=== PATIENT | female | born 1950 | race Caucasian/White ===

== ENCOUNTER 2021-03-01 10:37 | Emergency (ER) | payer OTHER ==
--- NOTE | 2021-03-01 11:20 | RAD REPORT ---
EXAM DESCRIPTION: CT - Head Brain Wo Cont - 03/01/2021 11:11 am CLINICAL HISTORY: TRAUMA COMPARISON: No comparisons TECHNIQUE: All CT scans are performed using dose optimization technique as appropriate and may inclu de automated exposure control or mA/KV adjustment according to patient size. FINDINGS: No intracranial hemorrhage, hydrocephalus or extra-axial fluid collection.No areas of brai n edema or evidence of midline shift. Right forehead laceration. Mucous retention cyst in the right maxillary sinus. The calvarium is intact. IMPRESSION: No acute intracranial abnormality. No skull fracture.
[2021-03-01] MEDS ORDERED: LIDOCAINE 1% MPF 5 ML VIAL ONE (11:32)
[2021-03-01] MEDS ORDERED: TETANUS & DIPHTHERIA TOX,ADULT 0.5 ML VIAL ONE (11:33)
[2021-03-01] MEDS ORDERED: LIDOCAINE 1% W/EPI 1:100,000 MDV 20 ML VIAL ONE (11:33)
--- NOTE | 2021-03-01 13:39 | ER ---
Nurse's Notes [facility] Name: Dory Temple Age: 70 yrs Sex: Female : 1950 Arrival Date: 03/01/2021 Time: 10:38 Bed 13 Private MD: Diagnosis: Laceration without foreign body of scalp;Laceration without foreign body of left little finger without damage to nail Presentation: 03/01 10:39 Risk Assessment: Do you want to hurt yourself or someone else? Patient reports no sv desire to harm self or others. Onset of symptoms was March 01, 2021. 10:39 Method Of Arrival: Ambulatory sv 10:40 Chief complaint: Patient states: fell into the facing of a door at home after coming in sv from outside. Pt states she drags her feet and tripped into the door. Pt has a head laceration to the top of her head, bleeding controlled. Denies LOC and not on blood thinners. Coronavirus screen: Coronavirus screen: Vaccine status: Patient reports receiving the 2nd dose of the covid vaccine. Patient reports receiving the 1st dose of the Covid vaccine. Ebola Screen: No symptoms or risks identified at this time. Initial Sepsis Screen: Does the patient meet any 2 criteria? No. Patient's initial sepsis screen is negative. Does the patient have a suspected source of infection? No. Patient's initial sepsis screen is negative. 10:40 Acuity: HENRRY 3 sv Triage Assessment: 10:39 General: Appears in no apparent distress. Behavior is calm, cooperative, appropriate sv for age. Neuro: Level of Consciousness is awake, alert, obeys commands, Oriented to person, place, time, situation, Gait is steady. Respiratory: Respiratory effort is even, unlabored. Historical: - Allergies: 10:44 No Known Allergies; sv - PMHx: 10:44 HTN; Diabetes mellitus; High cholesterol; sv - PSHx: 10:44 Justin hip; top 5 vertebrae fused; section; sv - Immunization history:: Adult Immunizations up to date. - Social history:: Smoking status: Patient denies any tobacco usage or history of. Screenin:09 Abuse screen: Denies threats or abuse. Denies injuries from another. Nutritional tw5 screening: No deficits noted. Tuberculosis screening: No symptoms or risk factors identified. Fall Risk Fall in past 12 months (25 points). Assessment: 11:09 General: Appears in no apparent distress. comfortable, Behavior is calm, cooperative, tw5 appropriate for age, Reports "I feel back into my back door and my head hit the frame." is at the bedside with patient. Pain: Complains of pain in right frontal area Pain currently is 4 out of 10 on a pain scale. Neuro: Level of Consciousness is awake, alert, obeys commands, Oriented to person, place, time, situation. Derm: Wound noted right frontal area. Injury Description: Laceration sustained to right frontal area is contaminated, full thickness, 7.6 to 20 cm long, bleeding moderately, was sustained 30-60 minutes ago. moderate bleeding noted at this time. 11:22 Pain: Pain currently is 4 out of 10 on a pain scale. tw5 11:52 Reassessment: Patient appears in no apparent distress at this time. tw5 13:52 Reassessment: Patient states feeling better. Patient states symptoms have improved. tw5 Vital Signs: 10:40 BP 136 / 105; Pulse 80; Resp 16; Temp 97.5; Pulse Ox 100% ; Weight 90.72 kg; Height 5 sv ft. 6 in. (167.64 cm); Pain 5/10; 11:09 BP 130 / 69; Pulse 81; Resp 18; Pulse Ox 100% on R/A; tw5 11:22 BP 125 / 64; Pulse 85; Resp 14; Pulse Ox 99% on R/A; Pain 4/10; tw5 11:52 BP 137 / 68; Pulse 83; Resp 14; Pulse Ox 98% ; Pain 4/10; tw5 13:52 BP 120 / 83; Pulse 86; Resp 14; Temp 98.1; Pulse Ox 100% ; Pain 0/10; tw5 10:40 Body Mass Index 32.28 (90.72 kg, 167.64 cm) sv ED Course: 10:38 Patient arrived in ED. ds1 10:39 Arm band placed on. sv 10:44 Triage completed. sv 10:47 Tarah Guevara FNP-C is PHCP. kb 10:47 Robinson Johnson MD is Attending Physician. kb 10:57 Janice Almonte is Primary Nurse. tw5 11:[address] Scan. tw5 11:09 Patient has correct armband on for positive identification. Pulse ox on. NIBP on. Door tw5 closed. Noise minimized. Lights dimmed. Warm blanket given. 11:10 CT Head Brain wo Cont In Process Unspecified. EDMS 11:52 Bed in low position. Call light in reach. Side rails up X 1. tw5 11:52 Wound care: to laceration located on right frontal area was cleaned with irrigated with tw5 Patient tolerated well. 11:52 Assist provider with laceration repair on right frontal area that was between 7.6 to tw5 12.5 cm using sutures. Set up tray. Performed by Tarah ENRIQUEZ Dressed with Kerlix. 12:00 Assist provider with laceration repair using rayo. tw5 12:00 Patient did not have IV access during this emergency room visit. tw5 Administered Medications: 11:23 Drug: Tetanus-Diphtheria Toxoid Adult 0.5 ml {Dance Critic: [employer]. Exp: tw5 08/26/2022. Lot #: [id number]. } Route: IM; Site: left deltoid; 12:37 Follow up: Response: No adverse reaction tw5 12:00 Drug: Lidocaine (1 %) 1 vials {Note: Administered by CHENILLE MACHINE OPERATOR.} Volume: 5 ml; Route: tw5 Infiltration; 12:00 Drug: Lidocaine-Epinephrine -1%: (1:100,000) 1 vials {Note: Administered by CHENILLE MACHINE OPERATOR.} tw5 Volume: 20 ml; Route: Infiltration; Outcome: 13:38 Discharge ordered by MD. jensen 13:52 Discharged to home ambulatory, with family. tw5 13:52 Condition: stable 13:52 Discharge instructions given to patient, family, Instructed on discharge instructions, follow up and referral plans. medication usage, Demonstrated understanding of instructions, Prescriptions given X 1. 13:53 Patient left the ED. tw5 Signatures: Dispatcher [employer] EDIA Tarah Guevara FNP-C FNP-Donna La RN RN sv Sanford, Demi ds1 Jackson, Kandis kj1 Wood, Tiffany tw5 Corrections: (The following items were deleted from the chart) 10:45 10:40 Coronavirus screen: sv sv 10:47 10:40 Chief complaint: Patient states: fell into the facing of a door at home after sv coming in from outside. Pt states she drags her feet and tripped into the door. sv 10:48 10:40 Chief complaint: Patient states: fell into the facing of a door at home after sv coming in from outside. Pt states she drags her feet and tripped into the door. Denies LOC and not on blood thinners. sv 11:18 11:09 BP 130 / 69; Pulse 18bpm; Resp 81bpm; Pulse Ox 100% RA; tw5 tw5 11:40 11:15 Inserted saline lock: 20 gauge in left antecubital area, using aseptic technique. kj1 Blood collected. kj1 11:40 11:15 Initial lab(s) drawn, by ED staff, sent to lab. kj1 kj1
--- NOTE | 2021-03-01 13:39 | EDPHYS ---
Physician Documentation [facility] Name: Dory Temple Age: 70 yrs Sex: Female : 1950 Arrival Date: 03/01/2021 Time: 10:38 Bed 13 Private MD: ED Physician Robinson Johnson HPI: 03/01 17:30 This 70 yrs old Female presents to ER via Ambulatory with complaints of Fall kb Injury - Head Lac. 17:30 Details of fall: The patient fell from an upright position, while walking. Onset: The kb symptoms/episode began/occurred just prior to arrival. Associated injuries: The patient sustained injury to the head, laceration, 20 cm(s), of the forehead and top of head, palmar aspect of middle phalanx of right little finger, laceration. Severity of symptoms: At their worst the symptoms were moderate, in the emergency department the symptoms are unchanged. The patient has not experienced similar symptoms in the past. The patient has not recently seen a physician. Pt reports she didn't pick her foot up all the way when walking so she tripped and fell hitting head on the metal door jam. Denies loc, headache, dizziness, lightheadedness. Historical: - Allergies: 10:44 No Known Allergies; sv - PMHx: 10:44 HTN; Diabetes mellitus; High cholesterol; sv - PSHx: 10:44 Justin hip; top 5 vertebrae fused; section; sv - Immunization history:: Adult Immunizations up to date. - Social history:: Smoking status: Patient denies any tobacco usage or history of. ROS: 17:23 Constitutional: Negative for fever, chills, and weight loss. kb 17:23 Skin: Positive for laceration(s), of the palmar aspect of middle phalanx of right little finger. 17:24 Skin: Positive for laceration(s), of the top of head and forehead. kb 17:24 All other systems are negative. Exam: 17:29 Constitutional: This is a well developed, well nourished patient who is awake, alert, kb and in no acute distress. Cardiovascular: Regular rate and rhythm with a normal S1 and S2. No gallops, murmurs, or rubs. No pulse deficits. Respiratory: Respirations even and unlabored. No increased work of breathing, no retractions or nasal flaring. MS/ Extremity: Pulses equal, no cyanosis. Neurovascular intact. Full, normal range of motion. Neuro: Awake and alert, GCS 15, oriented to person, place, time, and situation. Moves all extremities. Normal gait. Psych: Awake, alert, with orientation to person, place and time. Behavior, mood, and affect are within normal limits. 17:29 Head/face: Noted is no obvious of injury or deformity except a laceration(s), that is deep, 20 cm(s), of the forehead and top of head. 17:29 Skin: injury, laceration(s), the wound is approximately 20 cm(s), of the forehead and top of head, the second wound is approximately 1.5 cm(s), of the palmar aspect of middle phalanx of right little finger, that can be described as clean, no foreign body, irregular, with moderate bleeding. Vital Signs: 10:40 BP 136 / 105; Pulse 80; Resp 16; Temp 97.5; Pulse Ox 100% ; Weight 90.72 kg; Height 5 sv ft. 6 in. (167.64 cm); Pain 5/10; 11:09 BP 130 / 69; Pulse 81; Resp 18; Pulse Ox 100% on R/A; tw5 11:22 BP 125 / 64; Pulse 85; Resp 14; Pulse Ox 99% on R/A; Pain 4/10; tw5 11:52 BP 137 / 68; Pulse 83; Resp 14; Pulse Ox 98% ; Pain 4/10; tw5 13:52 BP 120 / 83; Pulse 86; Resp 14; Temp 98.1; Pulse Ox 100% ; Pain 0/10; tw5 10:40 Body Mass Index 32.28 (90.72 kg, 167.64 cm) sv Laceration: 17:25 Wound Repair of 1.5cm ( 0.6in ) subcutaneous laceration to palmar aspect of middle kb phalanx of right little finger. Linear shaped.. Distal neuro/vascular/tendon intact. Anesthesia: Wound infiltrated with 1 mls of 1% lidocaine. Wound prep: Extensive cleansing with hibiclenz by me, Wound irrigation with saline by az. Skin closed with 3 5-0 Prolene using simple sutures and sterile technique. Patient tolerated well. 17:25 Wound Repair of 20cm ( 7.9in ) subcutaneous laceration to forehead and top of head. kb Irregularly shaped.. Distal neuro/vascular/tendon intact. Anesthesia: Wound infiltrated with 15 mls of 1% lidocaine w/ Epi. Wound prep: Extensive cleansing with hibiclenz by nurse by me, Wound irrigation with saline by nurse by me, Copious irrigation. Skin closed with 4 5-0 fast absorbing gut using one cruciate sutures, 3 simple sutures. Skin closed with 21 Luana using staple gun. Patient tolerated well. MDM: 10:47 Patient medically screened. kb 17:23 Data reviewed: vital signs, nurses notes. Data interpreted: Pulse oximetry: on room air kb is 100 %. Interpretation: normal. Counseling: I had a detailed discussion with the patient and/or guardian regarding: the historical points, exam findings, and any diagnostic results supporting the discharge/admit diagnosis, radiology results, the need for outpatient follow up, a family practitioner, to return to the emergency department if symptoms worsen or persist or if there are any questions or concerns that arise at home. 03/01 10:51 Order name: CT Head Brain wo Cont; Complete Time: 11:21 kb 03/01 10:52 Order name: Dressing - Wound; Complete Time: 11:09 kb 03/01 10:52 Order name: Gloves, Sterile; Complete Time: 11:09 kb 03/01 10:52 Order name: Setup Suture Tray; Complete Time: 11:09 kb Administered Medications: 11:23 Drug: Tetanus-Diphtheria Toxoid Adult 0.5 ml {Senior Counsel: [employer]. Exp: tw5 08/26/2022. Lot #: [id number]. } Route: IM; Site: left deltoid; 12:37 Follow up: Response: No adverse reaction tw5 12:00 Drug: Lidocaine (1 %) 1 vials {Note: Administered by GAS PLANT OPERATOR.} Volume: 5 ml; Route: tw5 Infiltration; 12:00 Drug: Lidocaine-Epinephrine -1%: (1:100,000) 1 vials {Note: Administered by GAS PLANT OPERATOR.} tw5 Volume: 20 ml; Route: Infiltration; Disposition: 18:35 Co-signature as Attending Physician, Robinson Johnson MD I agree with the assessment and rn plan of care. Attestation: The patient's history, exam findings, diagnostics, and a summary of any interventions or procedures was reviewed in detail with Tarah ENRIQUEZ. Disposition Summary: 03/01/21 13:38 Discharge Ordered Location: Home kb Condition: Stable kb Diagnosis - Laceration without foreign body of scalp kb - Laceration without foreign body of left little finger without damage to nail kb Followup: kb - With: Emergency Department - When: As needed - Reason: Worsening of condition Followup: kb - With: Private Physician - When: 2 - 3 days - Reason: Recheck today's complaints, Continuance of care, Re-evaluation by your physician Discharge Instructions: - Discharge Summary Sheet kb - Laceration Care, Adult, [id number] kb - Head Injury, Adult, [id number] kb Forms: - Medication Reconciliation Form kb - Thank You Letter kb - Antibiotic Education kb - Prescription Opioid Use kb Prescriptions: - Cephalexin 500 mg Oral Capsule - take 1 capsule by ORAL route every 8 hours for 10 days; 30 capsule; Refills: 0, kb Product Selection Permitted Signatures: Dispatcher [employer] EDTarah Crawford FNP-C FNP-Donna La, Robinson Frankel RN, MD MD rn Wood, Tiffany tw5 Corrections: (The following items were deleted from the chart) 17:31 17:30 Pt reports she didn't pick her foot up all the way when walking so she tripped kb and fell hitting head on the metal door jam. Denies loc. kb
[2021-03-01 14:03] VITALS: BP 120/83; TEMP 98.1; O2SAT 100
== END 2021-03-01 13:53 | disposition home or self-care (01) ==
LOC: ER 10:37
PROC: 0JQJ0ZZ Repair Right Hand Subcutaneous Tissue and Fascia, Open Approach (ICD-10-PCS; principal; 2021-03-01)
PROC: 0JQ00ZZ Repair Scalp Subcutaneous Tissue and Fascia, Open Approach (ICD-10-PCS; 2021-03-01)
DX: S01.01XA Laceration without foreign body of scalp, initial encounter (principal); S61.216A Laceration without foreign body of right little finger without damage to nail, initial encounter; W01.198A Fall on same level from slipping, tripping and stumbling with subsequent striking against other object, initial encounter; Y93.01 Activity, walking, marching and hiking; Z23 Encounter for immunization; I10 Essential (primary) hypertension
CPT/HCPCS: 70450; 90471; 90714; 99284

== ENCOUNTER 2021-03-15 09:49 | Emergency (ER) | payer OTHER ==
--- NOTE | 2021-03-15 10:37 | EDPHYS ---
Physician Documentation [facility] Name: Dory Temple Age: 70 yrs Sex: Female : 1950 Arrival Date: 03/15/2021 Time: 09:52 Bed 12 Private MD: ED Physician Taylor Rene HPI: 03/15 10:29 This 70 yrs old Female presents to ER via Ambulatory with complaints of jmm Suture Removal. 10:29 The patient has rayo on the scalp. Sutures/rayo progress: The patient has no jmm c/o's. The wound is well-healing with no redness, swelling, discharge, or dehiscence reported. It is unknown whether or not the patient has had similar symptoms in the past. Historical: - PMHx: 10:05 diabetes mellitus; High Cholesterol; HTN; vg1 - PSHx: 10:05 Justin hip; section; top 5 vertebrae fused; vg1 - Immunization history:: Adult Immunizations up to date. - Social history:: Smoking status: unknown. ROS: 10:29 Constitutional: Negative for fever, chills, and weight loss, Cardiovascular: Negative jmm for chest pain, palpitations, and edema, Respiratory: Negative for shortness of breath, cough, wheezing, and pleuritic chest pain. 10:29 Skin: Positive for laceration(s). 10:29 All other systems are negative. Exam: 10:29 Constitutional: This is a well developed, well nourished patient who is awake, alert, jmm and in no acute distress. Head/Face: atraumatic. Eyes: EOMI, no conjunctival erythema appreciated ENT: Moist Mucus Membranes 10:29 Chest/axilla: Normal chest wall appearance and motion. Cardiovascular: Regular rate and rhythm. No edema appreciated Respiratory: Normal respirations, no respiratory distress appreciated Abdomen/GI: Non distended, soft Back: Normal ROM Skin: General appearance color normal 10:29 Head/face: Well-healed scalp laceration noted. 10:30 Musculoskeletal/extremity: Healing left fifth phalanx laceration, no purulent drainage jmm or surrounding induration with erythema. 10:30 Skin: Appearance: Color: normal in color. 10:30 Neuro: Orientation: is normal, Mentation: is normal, Memory: is normal. 10:30 Psych: Behavior/mood is pleasant, cooperative. Vital Signs: 10:42 BP 121 / 81; Pulse 81; Resp 17; Pulse Ox 100% ; ll1 10:42 Temp 98.0; ll1 MDM: 10:26 Patient medically screened. [facility] 10:34 Data reviewed: vital signs, nurses notes. Counseling: I had a detailed discussion with sun the patient and/or guardian regarding: the historical points, exam findings, and any diagnostic results supporting the discharge/admit diagnosis, the need for outpatient follow up, to return to the emergency department if symptoms worsen or persist or if there are any questions or concerns that arise at home. Administered Medications: No medications were administered Disposition: 18:31 Co-signature as Attending Physician, Taylor Rene MD. ma2 Disposition Summary: 03/15/21 10:36 Discharge Ordered Location: Home [facility] Condition: Stable [facility] Diagnosis - Encounter for removal of sutures [facility] Followup: [facility] - With: Private Physician - When: 2 - 3 days - Reason: Recheck today's complaints, Continuance of care, Re-evaluation by your physician Discharge Instructions: - Discharge Summary Sheet [facility] - Suture Removal, Care After [facility] Forms: - Medication Reconciliation Form [facility] - Thank You Letter [facility] - Antibiotic Education [facility] - Prescription Opioid Use [facility] Signatures: Richard Rdz PA PA jmm Alzahri, Mohammad, MD MD ma2 Isaura Lozada, RN RN vg1 Teresa Bell RN RN ll1 Corrections: (The following items were deleted from the chart) 10:34 10:29 The patient has sutures on the palmar aspect of distal phalanx of right little [facility] finger, [facility]
--- NOTE | 2021-03-15 10:37 | ER ---
Nurse's Notes [facility] Name: Dory Temple Age: 70 yrs Sex: Female : 1950 Arrival Date: 03/15/2021 Time: 09:52 Bed 12 Private MD: Diagnosis: Encounter for removal of sutures Presentation: 03/15 10:04 Chief complaint: Patient states: Here for suture removal. Site without redness, vg1 swelling or drainage. Pt denies pain. Initial Sepsis Screen: Does the patient meet any 2 criteria? No. Patient's initial sepsis screen is negative. Does the patient have a suspected source of infection? No. Patient's initial sepsis screen is negative. Risk Assessment: Do you want to hurt yourself or someone else? Patient reports no desire to harm self or others. Onset of symptoms was March 01, 2021. 10:04 Method Of Arrival: Ambulatory vg1 10:04 Acuity: HENRRY 5 vg1 10:23 Coronavirus screen: Client denies travel out of the [place] in the last 14 days. Ebola ll1 Screen: Patient denies travel to an Ebola-affected area in the 21 days before illness onset. Triage Assessment: 10:05 General: Appears in no apparent distress. comfortable, Behavior is calm, cooperative. vg1 Pain: Denies pain. Historical: - PMHx: 10:05 diabetes mellitus; High Cholesterol; HTN; vg1 - PSHx: 10:05 Justin hip; section; top 5 vertebrae fused; vg1 - Immunization history:: Adult Immunizations up to date. - Social history:: Smoking status: unknown. Screenin:23 Abuse screen: Denies threats or abuse. Nutritional screening: No deficits noted. ll1 Tuberculosis screening: No symptoms or risk factors identified. Fall Risk Total Armstrong Fall Scale indicates No Risk (0-24 pts). Assessment: 10:41 Reassessment: No changes from previously documented assessment. Patient and/or family ll1 updated on plan of care and expected duration. Pain level reassessed. Patient is alert, oriented x 3, equal unlabored respirations, skin warm/dry/pink. Vital Signs: 10:42 BP 121 / 81; Pulse 81; Resp 17; Pulse Ox 100% ; ll1 10:42 Temp 98.0; ll1 ED Course: 09:52 Patient arrived in ED. mr 09:53 Richard Rdz PA is PHCP. [facility] 09:53 Taylor Rene MD is Attending Physician. [facility] 10:04 Triage completed. vg1 10:05 Arm band placed on. vg1 10:23 Patient has correct armband on for positive identification. Bed in low position. Call ll1 light in reach. Side rails up X 1. 10:41 No provider procedures requiring assistance completed. Patient did not have IV access ll1 during this emergency room visit. Administered Medications: No medications were administered Outcome: 10:36 Discharge ordered by . [facility] 10:41 Discharged to home ambulatory. ll1 10:41 Condition: stable 10:41 Discharge instructions given to patient, Instructed on discharge instructions, follow up and referral plans. Demonstrated understanding of instructions, follow-up care. 10:42 Patient left the ED. 1 Signatures: Richard Rdz PA PA jm Gena Del Rio Isaura Lozada, RN RN 1 Teresa Bell RN RN 1
[2021-03-15 10:47] VITALS: BP 121/81; TEMP 98; O2SAT 100
== END 2021-03-15 10:42 | disposition home or self-care (01) ==
LOC: ER 09:49
DX: Z48.02 Encounter for removal of sutures (principal)
CPT/HCPCS: 99281